=== PATIENT | female | born 1945 | race Caucasian/White ===

== ENCOUNTER 2018-05-05 08:36 | Inpatient (IN) | payer OTHER ==
[~2018-05-05] VITALS: Ht 157.5 cm; Wt 92.4 kg
[~2018-05-05 08:36] MED LIST: BACTROBAN NASAL1 G1 BOTH NARES; FLONASE16 G1 BOTH NARES; LIPITOR20 MG PO; LO-DOSE ASPIRIN81 M2 PO; SYMBICORT60 INHALA1 IH; TENORETIC 501 TABLET PO
[2018-05-05 09:10] VITALS: BP 138/83
[2018-05-05 14:23] LABS: WHITE BLOOD COUNT ND K/uL (4.1-10.2)
[2018-05-05 14:24] LABS: HEMATOCRIT ND % (36.0-46.0); HEMOGLOBIN ND G/DL (11.9-15.5); MCV ND FL (83-99); RED BLOOD COUNT ND M/uL (3.80-5.20)
[2018-05-05 14:25] LABS: IMM.PLATELET FRACTION ND (1-7); MCH ND PG (29.0-34.0); MCHC ND G/DL (30.0-36.0); NRBC (%) ND /100 WBC (0-0); PLATELET COUNT ND K/uL (156-360); RBC DIS.WIDTH-CV ND % (11.8-14.6); RBC DIS.WIDTH-SD ND % (39-53)
[2018-05-05 14:49] LABS: HEMATOCRIT 35.8 % (36.0-46.0); HEMOGLOBIN 11.1 G/DL (11.9-15.5); MCH 24.8 PG (29.0-34.0); MCV 80.1 FL (83-99); RBC DIS.WIDTH-CV 16.5 % (11.8-14.6); RBC DIS.WIDTH-SD 48.3 % (39-53); RED BLOOD COUNT 4.47 M/uL (3.80-5.20); WHITE BLOOD COUNT 6.1 K/uL (4.1-10.2)
[2018-05-05 16:05] LABS: PLATELET COUNT 216 K/uL (156-360)
[2018-05-05 19:49] VITALS: BP 124/58
[2018-05-06] VITALS (7 sets, daily range): BP systolic 115–148; BP diastolic 53–67
[2018-05-06 05:43] LABS: MCV 80.6 FL (83-99)
[2018-05-06 06:13] LABS: CHLORIDE 100 MEQ/L (99-109); CREATININE 0.8 MG/DL (0.6-1.3); GFR ESTIMATE (CALCULATED) > 59 mL/min/; GLUCOSE 146 mg/dL (70-99); POTASSIUM 3.3 MEQ/L (3.7-5.4); SODIUM 138 MEQ/L (136-147); UREA NITROGEN (BUN) 17 mg/dL (9-23)
[2018-05-07 04:25] VITALS: BP 137/65
[2018-05-07 06:18] LABS: HEMATOCRIT 34.9 % (36.0-46.0); HEMOGLOBIN 10.8 G/DL (11.9-15.5)
[2018-05-07 07:43] VITALS: BP 159/69
[2018-05-07] MEDS ORDERED: OXYCODONE HCL5 MG PO (08:23)
[2018-05-07] MEDS ORDERED: ONDANSETRON ODT4 MG PO (08:23)
[2018-05-07] MEDS ORDERED: ELIQUIS2.5 MG PO (08:23)
[2018-05-07] MEDS ORDERED: DOCUSATE SODIU100 MG PO (08:23)
[2018-05-07] MEDS ORDERED: CELECOXIB200 MG PO (08:23)
[2018-05-07 12:52] VITALS: BP 142/64
== END 2018-05-07 16:28 | DRG 470 ==
LOC: 2SOUTH 08:36 → 3WEST 08:36 → 2SOUTH 12:47 → ENRESERV 14:30 → 2SOUTH 14:33 → 3WEST 15:57
PROVIDERS: Orthopaedic Surgery
PROC: 0SRC0J9 Replacement of Right Knee Joint with Synthetic Substitute, Cemented, Open Approach (ICD-10-PCS; principal; 2018-05-05)
DX: M17.11 Unilateral primary osteoarthritis, right knee (principal); M21.161 Varus deformity, not elsewhere classified, right knee; I10 Essential (primary) hypertension; E78.00 Pure hypercholesterolemia, unspecified; Z85.118 Personal history of other malignant neoplasm of bronchus and lung; J45.909 Unspecified asthma, uncomplicated; R35.0 Frequency of micturition; E66.9 Obesity, unspecified; Z68.38 Body mass index [BMI] 38.0-38.9, adult; Z96.652 Presence of left artificial knee joint; Z22.322 Carrier or suspected carrier of Methicillin resistant Staphylococcus aureus
CPT/HCPCS: 73560; 80048; 85014; 85018; 85027; 94640; C1713; J0690; J2250; J2405; J2795; J3010; J3370; J7030; J7050; S0020